=== PATIENT | male | born 1990 | race Caucasian/White ===

== ENCOUNTER 2020-05-23 16:27 | Emergency (ER) | payer OTHER, BC ==
[~2020-05-23] VITALS: Ht 180.3 cm; Wt 61.3 kg
[~2020-05-23 16:27] MED LIST: CYCL10TA9 PO; METH4TAB PO; MPR22T TP; NAPR-243 PO; SULF1TAB38 PO
--- NOTE | 2020-05-23 17:08 | ED Lower Extremity ---
General Stated Complaint: L FOOT INJ Source: patient Exam Limitations: no limitations History of Present Illness Date Seen by Provider: May 23, 2020 Time Seen by Provider: 17:00 Initial Comments 29-year-old male presents with crush injury to his left foot. Patient reports it happened about an hour and a half ago. Patient was seen in urgent care and was told he had a fracture however no splint and is unsure the fracture is. Patient was sent over here for further evaluation. Patient has moderate swelling to the left foot, full range of motion of his toes, full sensation. He said 80s up-to-date on his tetanus. No other injuries Allergies and Home Medications Allergies Coded Allergies: No Known Drug Allergies (Unverified , 01/17/12) Home Medications Cyclobenzaprine Hcl 10 Mg Tablet, 1 EACH PO Q8HR Prescribed by: MAITE BONDS on 10/03/132100 Methylprednisolone 4 Mg/Dose-Pack Tab.ds.pk, 0 PO UD Prescribed by: MAITE BONDS on 01/17/122237 Mupirocin 22 Gm Tube, 0 TP TID APPLY TO SPARINGLY TO AFFECTED AREA(S) Prescribed by: MAITE BONDS on 01/17/122237 Naproxen 500 Mg Tablet, 1 EACH PO TID PRN for PAIN FOR PAIN Prescribed by: MAITE BONDS on 10/03/132100 Trimethoprim/Sulfamethoxazole 1 Ea Tablet, 1 EA PO BID FOR INFECTION Prescribed by: MAITE BONDS on 01/17/122237 Patient Home Medication List Home Medication List Reviewed: Yes Review of Systems Constitutional: No chills, No fever EENTM: no symptoms reported Respiratory: no symptoms reported Cardiovascular: no symptoms reported Gastrointestinal: no symptoms reported Musculoskeletal: see HPI Skin: see HPI Psychiatric/Neurological: No Symptoms Reported Past Teusnsq-[id number]-Khfthb Hx Past Med/Social Hx: Reviewed Nursing Past Med/Soc Hx Patient Social History Recent Foreign Travel: No Contact w/Someone Who Travel: No Immunizations Up To Date Tetanus Booster (TDap): Unknown Physical Exam Vital Signs Vital Signs - First Documented 05/23/20 16:55 Pulse 70 Resp 20 B/P (MAP) 152/95 (114) Pulse Ox 99 O2 Delivery Room Air Capillary Refill : Height, Weight, BMI Height: 5'11" Weight: 145lbs. oz. 65.177591pm; BMI Method:Stated General Appearance: mild distress Neck: supple Cardiovascular: normal peripheral pulses, regular rate, rhythm, other (2+ pulses bilateral lower extremities with brisk cap refill) Respiratory: lungs clear, no respiratory distress Gastrointestinal: non tender, soft Hips: bilateral hip non-tender Legs: bilateral leg non-tender Knees: bilateral knee non-tender Ankles: bilateral ankle non-tender Feet: left foot pain, left foot soft tissue tenderness, left foot swelling Neurologic/Tendon: normal sensation Neurologic/Psychiatric: alert, normal mood/affect, oriented x 3 Skin: other (swelling left foot) Progress/Results/Core Measures Results/Orders My Orders Orders - WATKINS,AISHWARYA L DO Foot, Left, 3 Views (05/23/20 17:04) Vital Signs/I&O 05/23/20 16:55 Pulse 70 Resp 20 B/P (MAP) 152/95 (114) Pulse Ox 99 O2 Delivery Room Air Progress Progress Note : Time: 17:48 Progress Note Patient with multiple fractures, Lisfranc fracture of the mid foot with a dislocation pattern per radiology report. Discussed with Dr. villa who reports patient needs a sales and service specialist. Called and discussed with Dr. [facility]. Dr. llanos reviewed images. At this time patient has no signs of compartment syndrome with good sensation and palpable pulses. Patient to follow-up at [facility] tomorrow at 10:30 AM. He is to be nonweightbearing with a bulky posterior splint. Diagnostic Imaging Diagonstic Imaging: Xray Plain Films/CT/US/NM/MRI: other (foot) Comments Discussed with radiologist. Patient with a midfoot fracture with a dislocation pattern, Lisfranc fracture with multiple fractures throughout the midfoot. Reviewed: Reviewed by Me, Discussed w/Radiologist Departure Impression Primary Impression: Lisfranc fracture Additional Impression: Fracture of left foot Qualified Codes: S92.902A - Unspecified fracture of left foot, initial encounter for closed fracture Disposition: 01 HOME, SELF-CARE Condition: Stable Departure-Patient Inst. Referrals: NO,LOCAL PHYSICIAN (PCP) Primary Care Physician [facility] Patient Instructions: Foot Fracture (DC) Add. Discharge Instructions: Please follow up with Dr Brandt tomorrow at 1030 am [facility] [id number] [place] [address] Nothing to eat or drink after midnight Keep left foot elevated, no weight bearing on left foot. Scripts Hydrocodone/Acetaminophen (Hydrocodone-Acetamin 5-325 mg) 1 Each Tablet 1 EACH PO Q4H PRN for PAIN-SEVERE (8-10), #15 TAB Prov: AISHWARYA WATKINS DO 05/23/20 AISHWARYA WATKINS DO May 23, 2020 17:08
[2020-05-23] MEDS ORDERED: ACHD5005 PO (17:56)
[2020-05-23 18:41] VITALS: BP 130/86
== END 2020-05-23 18:43 | disposition home or self-care (01) ==
LOC: EDUNIT# 16:27 → ER 16:32
DX: S92.812A Other fracture of left foot, initial encounter for closed fracture (principal); Z79.52 Long term (current) use of systemic steroids; X58.XXXA Exposure to other specified factors, initial encounter
CPT/HCPCS: 29515; 73630